=== PATIENT | male | born 1950 | race Caucasian/White ===

== ENCOUNTER 2022-12-05 06:27 | Day surgery (SDC) | payer MEDICARE, OTHER ==
[2022-12-05] MEDS ORDERED: Sodium Chloride 0.9% 1,000 ML IV SCH (07:00)
[2022-12-05] MEDS ORDERED: Propofol 200 MG/20 ML SDV ONE (07:25)
[2022-12-05] MEDS ORDERED: fentaNYL 100 MCG/2 ML SDV ONE (07:25)
== END 2022-12-05 09:05 | disposition home or self-care (01) ==
LOC: JP.SDS 06:27
PROVIDERS: ATTEND Surgery
DX: K22.89 Other specified disease of esophagus (principal); K21.9 Gastro-esophageal reflux disease without esophagitis; I10 Essential (primary) hypertension; E78.5 Hyperlipidemia, unspecified; R73.9 Hyperglycemia, unspecified; Z88.8 Allergy status to other drugs, medicaments and biological substances
CPT/HCPCS: 43239; 88305; J2704; J3010; J7030